=== PATIENT | male | born 1960 | race Hispanic/Latino ===

== ENCOUNTER 2019-04-28 20:31 | Emergency (ER) | payer OTHER ==
--- NOTE | 2019-04-28 21:52 | ER ---
Nurse's Notes [facility] Name: Luis Carlos Lujan Jr Age: 58 yrs Sex: Male : 1960 Arrival Date: 04/28/2019 Time: 20:34 Bed 18 Private MD: Jose Miguel Oropeza B Diagnosis: Cough;Acute upper respiratory infection, unspecified Presentation: 04/27 20:50 Chief complaint: Patient states: I am having cough, SOB for 1 week now. I called dr. jen oropeza PCP he ordered me to do chest xray, told him I feel dizzy and headache too . 20:50 Coronavirus screen: Patient reports a subjective fever or greater than 100.4F, or rr5 cough, or shortness of breath, or difficulty breathing. Patient denies travel on a cruise ship or to a country the [facility] currently lists as an affected area. Ebola Screen: Patient negative for fever greater than or equal to 101.5 degrees Fahrenheit, and additional compatible Ebola Virus Disease symptoms Patient denies exposure to infectious person. Patient denies travel to an Ebola-affected area in the 21 days before illness onset. Initial Sepsis Screen: Does the patient meet any 2 criteria? No. Patient's initial sepsis screen is negative. Does the patient have a suspected source of infection? Yes: Productive cough/pneumonia. Risk Assessment: Do you want to hurt yourself or someone else? Patient reports no desire to harm self or others. Onset of symptoms was April 23, 2019. 20:50 Method Of Arrival: Ambulatory rr5 20:50 Acuity: HONORIO 4 rr5 Triage Assessment: 21:00 Respiratory: Onset: The symptoms/episode began/occurred gradually, the patient reports wh symptoms have resolved. 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 - Social history:: Smoking status: Patient denies any tobacco usage or history of. Patient/guardian denies using alcohol, street drugs. Screenin:01 Abuse screen: Denies threats or abuse. Denies injuries from another. Nutritional rr5 screening: No deficits noted. Tuberculosis screening: No symptoms or risk factors identified. Fall Risk None identified. Total Awan Fall Scale indicates No Risk (0-24 pts). Assessment: 21:00 General: Appears in no apparent distress. Behavior is calm, cooperative, appropriate wh for age. Pain: Denies pain. Neuro: Level of Consciousness is awake, alert, obeys commands, Oriented to person, place, time, situation, Appropriate for age. Cardiovascular: Heart tones S1 S2 Rhythm is regular. Respiratory: Reports shortness of breath cough that is non-productive, dry, Airway is patent Respiratory effort is even, unlabored, Respiratory pattern is regular, symmetrical, Breath sounds are clear bilaterally. GI: Abdomen is flat, non-distended. : No signs and/or symptoms were reported regarding the genitourinary system. EENT: Throat is pink. Derm: Skin is intact, is healthy with good turgor, Skin is pink, warm \T\ dry. normal. Musculoskeletal: Circulation, motion, and sensation intact. 21:59 Reassessment: Patient appears in no apparent distress at this time. Patient is alert, rr5 oriented x 3, equal unlabored respirations, skin warm/dry/pink. discharge instruction given and explained without complaints made. Vital Signs: 20:50 BP 170 / 81; Pulse 83; Resp 22; Temp 98.6; Pulse Ox 99% ; Weight 112.49 kg; Height 5 rr5 ft. 5 in. (165.10 cm); Pain 8/10; 21:59 BP 126 / 75; Pulse 75; Resp 19; Temp 97.8; Pulse Ox 99% on R/A; rr5 20:50 Body Mass Index 41.27 (112.49 kg, 165.10 cm) rr5 ED Course: 20:34 Patient arrived in ED. es 20:35 Jose Miguel Oropeza MD is Private Physician. es 20:41 Kyung Verma is Primary Nurse. wh 20:42 [facility] Rabago [facility]C [facility]. snw 20:42 Chaz Gomez MD is Attending Physician. snw 20:50 Arm band placed on right wrist. rr5 20:50 Patient has correct armband on for positive identification. Bed in low position. Call rr5 light in reach. Pulse ox on. NIBP on. 20:57 Triage completed. rr5 21:31 Chest Single View XRAY In Process Unspecified. EDMS 21:51 Jose Miguel Oropeza MD is Referral Physician. snw 21:59 No provider procedures requiring assistance completed. Patient did not have IV access rr5 during this emergency room visit. Administered Medications: No medications were administered Outcome: 21:52 Discharge ordered by . snw 21:59 Discharged to home ambulatory. rr5 21:59 Discharge instructions given to patient, Instructed on discharge instructions, follow up and referral plans. medication usage, Demonstrated understanding of instructions, follow-up care, medications, Prescriptions given X 1. 22:00 Condition: stable rr5 22:00 Patient left the ED. rr5 Signatures: Dispatcher [employer] EDAR Cate Rabago, DEBT RECOVERY OFFICER-C DEBT RECOVERY OFFICER-Carmencita Jones Winsy wh Roque, Raymond, RN RN rr5
--- NOTE | 2019-04-28 21:52 | EDPHYS ---
Physician Documentation [facility] Name: Luis Carlos Lujan Jr Age: 58 yrs Sex: Male : 1960 Arrival Date: 04/28/2019 Time: 20:34 Bed 18 Private MD: Jose Miguel Oropeza B ED Physician Chaz Gomez HPI: 04/27 20:56 This 58 yrs old Male presents to ER via Unassigned with complaints of Cough, snw Shortness Of Breath, Dizziness, Headache. 20:56 The patient or guardian reports cough, flu symptoms, low-grade fever, myalgias, no snw appetite, headache, dizziness. Onset: The symptoms/episode began/occurred suddenly, 5 day(s) ago, and became persistent. Severity of symptoms: At their worst the symptoms were moderate. Associated signs and symptoms: Pertinent positives: cough, dizziness, headache. It is unknown whether or not the patient has had similar symptoms in the past. called Dr. Oropeza' office and Antione Harper and [employer] called out for Pt on Tuesday, Pt states he does not feel better. 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 - Social history:: Smoking status: Patient denies any tobacco usage or history of. Patient/guardian denies using alcohol, street drugs. ROS: 20:55 Constitutional: Negative for fever, chills, and weight loss, Eyes: Negative for injury, snw pain, redness, and discharge, ENT: Negative for injury, pain, and discharge, Neck: Negative for injury, pain, and swelling, Cardiovascular: Negative for chest pain, palpitations, and edema, Abdomen/GI: Negative for abdominal pain, nausea, vomiting, diarrhea, and constipation, Back: Negative for injury and pain, : Negative for injury, bleeding, discharge, and swelling, MS/Extremity: Negative for injury and deformity, Skin: Negative for injury, rash, and discoloration, Neuro: Negative for headache, weakness, numbness, tingling, and seizure, Psych: Negative for depression, anxiety, suicide ideation, homicidal ideation, and hallucinations. 20:55 Respiratory: Positive for cough, shortness of breath, at rest. Exam: 20:54 Constitutional: This is a well developed, well nourished patient who is awake, alert, snw and in no acute distress. Head/Face: Normocephalic, atraumatic. Eyes: Pupils equal round and reactive to light, extra-ocular motions intact. Lids and lashes normal. Conjunctiva and sclera are non-icteric and not injected. Cornea within normal limits. Periorbital areas with no swelling, redness, or edema. ENT: Nares patent. No nasal discharge, no septal abnormalities noted. Tympanic membranes are normal and external auditory canals are clear. Oropharynx with no redness, swelling, or masses, exudates, or evidence of obstruction, uvula midline. Mucous membranes moist. Neck: Trachea midline, no thyromegaly or masses palpated, and no cervical lymphadenopathy. Supple, full range of motion without nuchal rigidity, or vertebral point tenderness. No Meningismus. Chest/axilla: Normal chest wall appearance and motion. Nontender with no deformity. No lesions are appreciated. Cardiovascular: Regular rate and rhythm with a normal S1 and S2. No gallops, murmurs, or rubs. Normal PMI, no JVD. No pulse deficits. Abdomen/GI: Soft, non-tender, with normal bowel sounds. No distension or tympany. No guarding or rebound. No evidence of tenderness throughout. Back: No spinal tenderness. No costovertebral tenderness. Full range of motion. Skin: Warm, dry with normal turgor. Normal color with no rashes, no lesions, and no evidence of cellulitis. MS/ Extremity: Pulses equal, no cyanosis. Neurovascular intact. Full, normal range of motion. Neuro: Awake and alert, GCS 15, oriented to person, place, time, and situation. Cranial nerves II-XII grossly intact. Motor strength 5/5 in all extremities. Sensory grossly intact. Cerebellar exam normal. Normal gait. Psych: Awake, alert, with orientation to person, place and time. Behavior, mood, and affect are within normal limits. 20:54 Respiratory: the patient does not display signs of respiratory distress, Respirations: normal, Breath sounds: are clear throughout, dry cough. Vital Signs: 20:50 BP 170 / 81; Pulse 83; Resp 22; Temp 98.6; Pulse Ox 99% ; Weight 112.49 kg; Height 5 rr5 ft. 5 in. (165.10 cm); Pain 8/10; 21:59 BP 126 / 75; Pulse 75; Resp 19; Temp 97.8; Pulse Ox 99% on R/A; rr5 20:50 Body Mass Index 41.27 (112.49 kg, 165.10 cm) rr5 MDM: 20:42 Patient medically screened. snw 21:52 Data reviewed: vital signs, nurses notes. Data interpreted: Pulse oximetry: on room air snw is 99 %. Interpretation: normal. Counseling: I had a detailed discussion with the patient and/or guardian regarding: the historical points, exam findings, and any diagnostic results supporting the discharge/admit diagnosis, the presence of at least one elevated blood pressure reading (>120/80) during this emergency department visit, radiology results, the need for outpatient follow up, to return to the emergency department if symptoms worsen or persist or if there are any questions or concerns that arise at home. Special discussion: Based on the history and exam findings, there is no indication for further emergent testing or inpatient evaluation. I discussed with the patient/guardian the need to see the primary care provider for further evaluation of the symptoms. 04/27 20:48 Order name: Chest Single View XRAY snw Administered Medications: No medications were administered Disposition: 04/28 18:06 Co-signature as Attending Physician, Chaz Gomez MD I agree with the assessment and dudley plan of care. Disposition: 04/28/19 21:52 Discharged to Home. Impression: Cough, Acute upper respiratory infection, unspecified. - Condition is Stable. - Discharge Instructions: Viral Respiratory Infection, Cool Mist Vaporizer, Cough, Adult, [id number], Rehydration, Adult. - Prescriptions for Zyrtec 10 mg Oral Tablet - take 1 tablet by ORAL route once daily As needed; 20 tablet. - Work release form, Medication Reconciliation Form, Thank You Letter, Antibiotic Education, Prescription Opioid Use form. - Follow up: Jose Miguel Oropeza MD; When: 2 - 3 days; Reason: Recheck today's complaints, Continuance of care, Re-evaluation by your physician. Follow up: Emergency Department; When: As needed; Reason: Fever > 102 F, Trouble breathing, Worsening of condition. Signatures: Dispatcher [employer] EDChaz Swanson MD MD cha Therrien, Shelly, WORKERS COMPENSATION ATTORNEY-C WORKERS COMPENSATION ATTORNEY-Csnw Judson Thornton, RN RN rr5 Corrections: (The following items were deleted from the chart) 04/27 22:00 21:52 04/28/2019 21:52 Discharged to Home. Impression: Cough; Acute upper respiratory rr5 infection, unspecified. Condition is Stable. Forms are Medication Reconciliation Form, Thank You Letter, Antibiotic Education, Prescription Opioid Use. Follow up: Jose Miguel Oropeza; When: 2 - 3 days; Reason: Recheck today's complaints, Continuance of care, Re-evaluation by your physician. Follow up: Emergency Department; When: As needed; Reason: Fever > 102 F, Trouble breathing, Worsening of condition. snw
[2019-04-28 22:07] VITALS: O2SAT 99
[2019-04-28 22:09] VITALS: BP 126/75; TEMP 97.8
--- NOTE | 2019-04-29 09:32 | RAD REPORT ---
EXAM DESCRIPTION: RAD - Chest Single View - 04/28/2019 9:31 pm CLINICAL HISTORY: COUGH COMPARISON: Two view chest December 2014 TECHNIQUE: AP portable chest image was obtained 04/28/2019 9:31 pm . FINDINGS: Lung volumes are low. No peripheral mass or consolidation. Interstitial pattern is not sub stantially different. Minimal edema or infiltrate is potentially masked. Heart and vasculature are no rmal. No measurable pleural effusion and no pneumothorax. No acute bony abnormality seen. No acute ao rtic findings suspected. IMPRESSION: No acute cardiopulmonary process. No significant change from comparison.
== END 2019-04-28 22:00 | disposition home or self-care (01) ==
LOC: ER 20:31
DX: J06.9 Acute upper respiratory infection, unspecified (principal); R05 Cough
CPT/HCPCS: 71045; 99283

== ENCOUNTER 2020-02-08 13:09 | Emergency (ER) | payer OTHER ==
--- OUTSIDE RECORDS SUMMARY | 2020-02-08 13:11 | XMS REPORT | Clinical Summary ---
:1960 Author Organization [facility] Address [address] [place] [id number] Care Team Providers Name Role Phone Heladio Oropeza MD Primary Care Provider Allergies No Known Allergies Medications Not on file Active Problems Not on file Social History Tobacco Use Types Packs/Day Years Used Date Never Assessed Sex Assigned at Date Recorded Not on file Last Filed Vital Signs Not on file Plan of Treatment Not on file Results Not on fileafter 02/07/2019 Insurance Payer Benefit Plan / Subscriber ID Effective Dates Phone Addre ss Type Group [facility] HMO POS [id number] 2016-Present HMO/POS - [facility] SELECT CHOICE
--- OUTSIDE RECORDS SUMMARY | 2020-02-08 13:11 | XMS REPORT | Summary of Care ---
:1960 Author Organization [facility] Address [address] [place] [address] Care Team Providers Name Role Phone Pcp, Patient Does Not Have A Primary Care Provider +[id number] Reason for Visit Reason Comments LAB covid testing- no symptoms a t this time Encounter Details Date Type Department Care Team Description 12/24/2019 Laboratory Only [facility] Family López George PA-C [address] [place] [id number] Exposure to Medicine - [facility], Adc Fam Pob I SARS-associated [address] [facility] coronaviru s ([address]) [place] [address] Allergies No Known Allergiesdocumented as of this encounter (statuses as of 12/24/2019) Medications Medication Sig Dispensed Refills Start Date End Date Status cetirizine 10 mg tablet Take 10 mg by 0 Active mouth. nadoloL 40 mg tablet Take 40 mg by 0 Active mouth. omeprazole 40 mg 0 10/08/2019 Ac tive capsule XIFAXAN 550 mg tablet 0 09/21/2019 Active eplerenone 50 mg tablet 0 08/23/2019 Active documented as of this encounter (statuses as of 12/24/2019) Active Problems Problem Noted Date Cirrhosis 04/28/2019 Shortness of breath 04/28/2019 Overview: Given albuterol by PCP Dr. Braxton Oropeza in [place]. Gave it on Tuesday04/24/2019. Was phone encounter Last Assessment & Plan: Now getting shortness of breath, on allergie meds in the past. No rhinorhea. No fever, 99.1 Has been self isolating since Tuesday. Dizziness when stand up, has hx of verti go. Room not spinning, getting light headed, everytime he stands up. Needs to be seen in person in urgent car e center. Will contact the urgent care team. 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 documented as of this encounter Last Filed Vital Signs Not on filedocumented in this encounter Nursing Notes Consuelo Vargas MA - 12/24/2019 5:20 PM CSTAbi Lujan is a 59 year old male here for COVID Screening with a Nasopharyngeal Swab All droplet and contact precautions taken with appropriate PPE worn while interacting with patient. ? Goggles ? N95 Mask ? Gloves ? Gown Patient educated on plan of care for visit, swabbing technique, risks and benefits of test and length of time to receive results. Verbal consent obtained to perform test. CDC Fact Sheet for Patients nCoV Diagnostic Panel dated 04/22/2019 and Factsheet What to Do if Sick with COVID 19 04/02/19 provided. Patient swabbed per appropriate nasopharyngeal technique, and patient tolerated well. Patient was discharged from the testing clinic in stable condition. Consuelo Waters MA 12/24/2019 5:40 PM Bilate nares swabbed during COVID19 nasopharyngeal swab. 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 Plan of Treatment Name Type Priority Associated Diagnoses Order S chedule COVID-19 (MOLECULAR LAB Routine Exposure to Expected : 12/24/2019, TESTING SARS-associated Expires: 021 NUCLEIC ACID coronavirus AMPLIFICATION) Health Maintenance Due Date Last Done Comments HEPATITIS C (HCV) SCREEN 1960 PNEUMOCOCCAL 0-64 YEARS COMBINED SERIES (1 of 1 - 1964 PPSV23) Depression Screening 1970 DTaP,Tdap,and Td Vaccines (1 - Tdap) 1977 COLON CANCER SCREENING ANNUAL FIT/FOBT 2008 COLON CANCER SCREENING FIT DNA EVERY 3 YEARS 2008 COLON CANCER SCREENING SIGMOIDOSCOPY EVERY 5 YEARS 2008 COLONOSCOPY 2008 Colorectal Cancer Screening 2008 Zoster Recombinant Vaccine (SHINGRIX) (1 of 2) 2008 INFLUENZA VACCINE (#1) 2019 documented as of this encounter Results Not on filedocumented in this encounter Visit Diagnoses Diagnosis Exposure to SARS-associated coronavirus - Primary documented in this encounter Additional Health Concerns Infection Onset Date Last Indicated Resolved Time COVID-19 Rule Out 12/24/2019 12/24/2019 documented as of this encounter Insurance Payer Benefit Plan / Subscriber ID Effective Dates Phone Addre ss Type Group [facility] [id number] [facility] P[facility] t S documented as of this encounter
--- OUTSIDE RECORDS SUMMARY | 2020-02-08 13:11 | XMS REPORT | Clinical Summary ---
:1960 Author Organization [facility] Address [address] [place] [address] Care Team Providers Name Role Phone Jose Miguel Oropeza MD Primary Care Provider Allergies No Known Active Allergies Medications Medication Sig Dispensed Refills Start Date End Date Status nadolol (CORGARD) 40 Take 40 mg by 0 Active MG tablet mouth daily. cetirizine (ZyrTEC) 10 Take 10 mg by 0 Active MG tablet mouth daily as needed for allergies. Active Problems Problem Noted Date Lower GI bleed 10/09/2018 Disorder of liver 10/09/2018 Acute calculous cholecystitis 08/03/2016 NAFL (nonalcoholic fatty liver) 07/15/2016 Cholelithiasis without obstruction 07/15/2016 Abdominal pain, right upper quadrant 07/15/2016 Non-alcoholic cirrhosis 07/15/2016 Surgical History Surgery Date Site/Laterality Comments RECTAL SURGERY 02/07/2006 - growth removed 02/06/2007 CHOLECYSTECTOMY, 08/03/2016 Abdomen/N/A Procedure: LAPA ROSCOPIC LAPAROSCOPIC CHOLECYSTECTOMY; Surgeon: Nicolas Hernandez MD; Loc ation: [facility]; rvice: General; Latera lity: N/A; Medical History Medical History Date Comments Valvular disease murmur; per pt, has leaky heart valve X 2 Shortness of breath due to wt per pt Apnea uses CPAP Diarrhea Gall stone Rectal bleeding per pt Kidney stone Tingling Numbness feet due to sciatic nerve, herniated disc Cirrhosis (HCC) Stomach ulcer per referral records Fatty liver disease, nonalcoholic Portal hypertension (HCC) Social History Tobacco Use Types Packs/Day Years Used Date Never Smoker Alcohol Use Drinks/Week oz/Week Comments No Sex Assigned at Date Recorded Not on file Last Filed Vital Signs Not on file Plan of Treatment Health Maintenance Due Date Last Done Comments COVID-19 VACCINE (#1) 1974 COLONOSCOPY SCREENING 2008 SHINGLES VACCINES (#1) 2008 INFLUENZA VACCINE 09/08/2019 Results Not on fileafter 02/07/2019 Advance Directives For more information, please contact: [phone] Type Date Recorded Patient Food Checker Explanati on Advance Directives, Living Will and Medical Power of Fighting Vehicle Infantryman Advance Directives, 10/17/2018 8:25 AM POA 0 10-10-2018 Living Will and Medical Power of Fighting Vehicle Infantryman
--- OUTSIDE RECORDS SUMMARY | 2020-02-08 13:11 | XMS REPORT | Continuity of Care Document ---
:1960 Author Organization [employer] [facility] Care Team Providers Name Role Phone [employer] [facility] Unavailable Un available Problems Problem Status Onset Classification Date Comments Sourc e Date Reported Diabetes mellitus Active Problem 06/02/2018 M ischer (disorder) Neuro Disorder of liver Active Problem 06/02/2018 M ischer (disorder) Neuro Heart murmur Resolved Problem 06/02/2018 Mische r (finding) Neuro Hyperlipidemia Active Problem 06/02/2018 Misc her (disorder) Neuro Morbid obesity Active Problem 06/02/2018 Misc her (disorder) Neuro Prolapsed lumbar Active Problem 06/02/2018 Mi oj intervertebral Neuro disc (disorder) Ulnar neuropathy Active Problem 06/02/2018 Mi oj (disorder) Neuro Medications No Data Provided for This Section Allergies, Adverse Reactions, Alerts No Known Medication Allergies Immunizations No Data Provided for This Section Results No Data Provided for This Section Pathology Reports No Data Provided for This Section Diagnostic Reports No Data Provided for This Section Consultation Notes No Data Provided for This Section Discharge Summaries No Data Provided for This Section History and Physicals No Data Provided for This Section Vital Signs No Data Provided for This Section Encounters Location Location Encounter Encounter Reason Attending ADM MA Stat Source Details Type Number For Provider Date Date Visit Outpatient [id number] KIERA 03/31 [facility] Outpatient [id number] KIERA 04/26 [facility] Outside [id number] 05/30 06/01 [facility] Neurology Medical /2018 [facility] [place] Records Procedures Procedure Code Date Perfomer Comments Source Cholecystectomy [id number] [facility] [place] [facility] Assessment and Plan No Data Provided for This Section Plan of Care No Data Provided for This Section Social History Social History Date Source Social History TypeResponse 03/31/2018 [facility] o Employment/School 1 Smoking Status Unknown if ever smoked; 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 Usha Oropeza-PCP Family History No Data Provided for This Section Advance Directives No Data Provided for This Section Functional Status No Data Provided for This Section
[2020-02-08] MEDS ORDERED: FENTANYL CITR 100 MCG/2 ML ONE (14:24)
--- NOTE | 2020-02-08 14:32 | RAD REPORT ---
EXAM DESCRIPTION: RAD - Chest Single View - 02/08/2020 2:20 pm CLINICAL HISTORY: CHEST PAIN COMPARISON: Single-view chest April 2019 TECHNIQUE: AP portable chest image was obtained 02/08/2020 2:20 pm . FINDINGS: No focal lung parenchymal process. Interstitial pattern matches comparison. Heart and vasc ulature are normal. No measurable pleural effusion and no pneumothorax. No acute bony abnormality see n. No acute aortic findings suspected. IMPRESSION: No acute cardiopulmonary process. No significant change from comparison study.
[2020-02-08 14:50] LABS: Absolute Lymphocytes (CBC) 0.7 K/uL (0.7-4.9); Basophils % 1.1 % (0-1.3); Hematocrit 40.7 % (39.6-49.0); MPV 11.9 fL (7.6-11.3); Protime INR 1.28; RBC Red Blood Cell Count 4.57 M/uL (4.33-5.43)
[2020-02-08 14:56] LABS: ALT/SGPT 41 U/L (12-78); AST/SGOT 46 U/L (15-37); Albumin 3.5 g/dL (3.4-5.0); Alkaline Phosphatase 70 U/L (45-117); BUN Blood Urea Nitrogen 17 mg/dL (7-18); Bicarbonate 28 mmol/L (21-32); Bilirubin Direct 0.4 mg/dL (0-0.2); Bilirubin Total 1.9 mg/dL (0.2-1.0); Glucose Level 94 mg/dL (74-106); Magnesium 2.2 mg/dL (1.8-2.4); NT PRO-BNP 39 pg/mL (<125); Potassium 4.7 mmol/L (3.5-5.1); Protein, Total 7.1 g/dL (6.4-8.2); Sodium Level 141 mmol/L (136-145); Troponin (Emerg Dept Use Only) < 0.02 ng/mL (0.0-0.045)
--- NOTE | 2020-02-08 15:20 | EDPHYS ---
Physician Documentation [facility] Name: Luis Carlos Lujan Jr Age: 59 yrs Sex: Male : 1960 Arrival Date: 02/08/2020 Time: 13:12 Bed 17 Private MD: ED Physician Davidson Angela HPI: 02/07 14:03 This 59 yrs old Male presents to ER via Ambulatory with complaints of Eye pm1 Problem, Chest pain, Shoulder Pain. 14:03 The patient or guardian reports chest pain that is located primarily in the mid-sternal pm1 area. Onset: 1 week(s) ago. The pain does not radiate. Associated signs and symptoms: Pertinent positives: headache, Pertinent negatives: abdominal pain, nausea, shortness of breath, vomiting. The chest pain is described as aching. Modifying factors: the symptoms are aggravated by left arm movement. Patient with left shoulder and neck pain for 1.5 weeks. Patient sleeps in recliner due to chronic low back pain. Patient reports yellowing of bilateral eyes yesterday that has improved today. Redness present to left eye this AM. 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 - Social history:: Smoking status: Patient denies any tobacco usage or history of. ROS: 14:03 Constitutional: Negative for fever, chills, and weight loss. pm1 14:03 ENT: Negative for injury, pain, and discharge. 14:03 Respiratory: Negative for shortness of breath, cough, wheezing, and pleuritic chest pain, Abdomen/GI: Negative for abdominal pain, nausea, vomiting, diarrhea, and constipation, Back: Negative for injury and pain, Skin: Negative for injury, rash, and discoloration. 14:03 Eyes: Positive for redness, Negative for discharge, pain, visual disturbance. 14:03 Neck: Positive for of the left trapezius, Pain, Negative for bony tenderness. 14:03 Cardiovascular: Positive for chest pain, Negative for edema, palpitations. 14:03 MS/extremity: Positive for pain, of the posterior aspect of left shoulder, Pain with movement. 14:03 Neuro: Positive for headache, Negative for altered mental status, dizziness. Exam: 14:00 Constitutional: This is a well developed, well nourished patient who is awake, alert, pm1 and in no acute distress. Head/Face: Normocephalic, atraumatic. 14:00 Chest/axilla: Normal chest wall appearance and motion. Nontender with no deformity. No lesions are appreciated. 14:00 Back: No spinal tenderness. No costovertebral tenderness. Full range of motion. Skin: Warm, dry with normal turgor. Normal color with no rashes, no lesions, and no evidence of cellulitis. MS/ Extremity: Pulses equal, no cyanosis. Neurovascular intact. Full, normal range of motion. 14:00 Eyes: Periorbital structures: appear normal, Pupils: no acute changes, Extraocular movements: no acute changes, Conjunctiva: subconjunctival hemorrhage(s), seen in the right eye, at 6 o'clock. 14:00 Neck: External neck: tenderness, of the left trapezius, muscle spasm. 14:00 Cardiovascular: Exam negative for acute changes, Rate: normal, Rhythm: regular, Pulses: no pulse deficits are appreciated. 14:00 Respiratory: Exam negative for acute changes, respiratory distress, shortness of breath. 14:00 Abdomen/GI: Exam negative for acute changes, Inspection: abdomen appears normal, Palpation: abdomen is soft and non-tender, in all quadrants. 14:00 Neuro: Exam negative for acute changes, Orientation: is normal, Mentation: is normal, Motor: is normal, moves all fours. Vital Signs: 13:38 BP 126 / 73; Pulse 58; Resp 16 S; Temp 97.9(TE); Pulse Ox 97% on R/A; Weight 104.78 kg ca1 (R); Height 5 ft. 5 in. (165.10 cm) (R); Pain 8/10; 13:55 BP 119 / 68; Pulse 58; Resp 16; Pulse Ox 97% on R/A; mh5 15:45 BP 108 / 62; Pulse 53; Resp 17 S; Pulse Ox 98% on R/A; jd3 13:38 Body Mass Index 38.44 (104.78 kg, 165.10 cm) ca1 MDM: 14:02 Patient medically screened. pm1 15:18 Data reviewed: vital signs. Data interpreted: Pulse oximetry: on room air is 97 %. pm1 Interpretation: normal. 15:18 Counseling: I had a detailed discussion with the patient and/or guardian regarding: the pm1 historical points, exam findings, and any diagnostic results supporting the discharge/admit diagnosis, lab results, radiology results, the need for outpatient follow up, to return to the emergency department if symptoms worsen or persist or if there are any questions or concerns that arise at home. 15:26 ED course: Patient's left trapezius muscle strain improved with deep tissue massage. pm1 02/07 14:03 Order name: Basic Metabolic Panel; Complete Time: 15:00 pm1 02/07 14:03 Order name: CBC with Diff pm02/07 14:03 Order name: LFT's; Complete Time: 15:00 pm02/07 14:03 Order name: Magnesium; Complete Time: 15:00 pm1 02/07 14:03 Order name: NT PRO-BNP; Complete Time: 15:00 pm1 02/07 14:03 Order name: PT-INR; Complete Time: 15:01 pm02/07 14:03 Order name: Troponin (emerg Dept Use Only); Complete Time: 15:00 pm02/07 14:03 Order name: XRAY Chest (1 view); Complete Time: 14:41 pm02/07 14:03 Order name: EKG; Complete Time: 14:03 pm02/07 14:03 Order name: Cardiac monitoring; Complete Time: 14:11 pm02/07 14:03 Order name: EKG - Nurse/Tech; Complete Time: 14:11 pm02/07 14:03 Order name: IV Saline Lock; Complete Time: 14:30 pm02/07 14:03 Order name: Labs collected and sent; Complete Time: 14:30 pm1 02/07 14:03 Order name: O2 Per Protocol; Complete Time: 14:06 pm02/07 14:03 Order name: O2 Sat Monitoring; Complete Time: 14:05 pm1 Administered Medications: 14:30 Drug: fentaNYL (PF) 25 mcg Route: IVP; Site: right antecubital; jd3 15:30 Follow up: Response: No adverse reaction; RASS: Alert and Calm (0) jd3 Disposition: 16:20 Co-signature as Attending Physician, Davidson Angela MD I agree with the assessment and tw4 plan of care. Disposition: 02/08/20 15:20 Discharged to Home. Impression: Chest pain, unspecified, Conjunctival hemorrhage, right eye, Strain of muscle, fascia and tendon at neck level - left trapezius. - Condition is Stable. - Discharge Instructions: Nonspecific Chest Pain. - Prescriptions for Cyclobenzaprine 10 mg Oral Tablet - take 1 tablet by ORAL route every 8 hours As needed; 30 tablet. - Medication Reconciliation Form, Thank You Letter, Antibiotic Education, Prescription Opioid Use form. - Follow up: Emergency Department; When: As needed; Reason: Worsening of condition. Follow up: Private Physician; When: 2 - 3 days; Reason: Recheck today's complaints, Continuance of care, Re-evaluation by your physician. - Problem is new. - Symptoms have improved. Signatures: Dispatcher [employer] EDMS Jigar Michael NP ACADEMIC TUTOR pm1 Marin Bianchi RN RN jd3 Wadley, Terrence, MD MD tw4 Cristina Barros RN RN ca1 Corrections: (The following items were deleted from the chart) 15:30 15:20 02/08/2020 15:20 Discharged to Home. Impression: Chest pain, unspecified. pm1 Condition is Stable. Forms are Medication Reconciliation Form, Thank You Letter, Antibiotic Education, Prescription Opioid Use. Follow up: Emergency Department; When: As needed; Reason: Worsening of condition. Follow up: Private Physician; When: 2 - 3 days; Reason: Recheck today's complaints, Continuance of care, Re-evaluation by your physician. Problem is new. Symptoms have improved. pm1 15:45 15:30 02/08/2020 15:20 Discharged to Home. Impression: Chest pain, unspecified; jd3 Conjunctival hemorrhage, right eye; Strain of muscle, fascia and tendon at neck level - left trapezius. Condition is Stable. Discharge Instructions: Nonspecific Chest Pain. Prescriptions for Cyclobenzaprine 10 mg Oral Tablet - take 1 tablet by ORAL route every 8 hours As needed; 30 tablet. and Forms are Medication Reconciliation Form, Thank You Letter, Antibiotic Education, Prescription Opioid Use. Follow up: Emergency Department; When: As needed; Reason: Worsening of condition. Follow up: Private Physician; When: 2 - 3 days; Reason: Recheck today's complaints, Continuance of care, Re-evaluation by your physician. Problem is new. Symptoms have improved. pm1
--- NOTE | 2020-02-08 15:20 | ER ---
Nurse's Notes [facility] Name: Luis Carlos Lujan Jr Age: 59 yrs Sex: Male : 1960 Arrival Date: 02/08/2020 Time: 13:12 Bed 17 Private MD: Diagnosis: Chest pain, unspecified;Conjunctival hemorrhage, right eye;Strain of muscle, fascia and tendon at neck level-left trapezius Presentation: 02/07 13:38 Chief complaint: Patient states: L shoulder and L side of neck pain x 1.5 weeks. I have ca1 cirrhosis of the liver, told my liver doctor my eyes got yellow yesterday, but this morning, my eyes turn red on both, worse on the R. I also have a little chest discomfort since last week. Coronavirus screen: Client denies travel out of the [place] in the last 14 days. At this time, the client does not indicate any symptoms associated with coronavirus-19. Ebola Screen: Patient negative for fever greater than or equal to 101.5 degrees Fahrenheit, and additional compatible Ebola Virus Disease symptoms Patient denies exposure to infectious person. Patient denies travel to an Ebola-affected area in the 21 days before illness onset. No symptoms or risks identified at this time. Initial Sepsis Screen: Does the patient meet any 2 criteria? No. Patient's initial sepsis screen is negative. Does the patient have a suspected source of infection? No. Patient's initial sepsis screen is negative. Risk Assessment: Do you want to hurt yourself or someone else? Patient reports no desire to harm self or others. Onset of symptoms was February 08, 2020. 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 - Social history:: Smoking status: Patient denies any tobacco usage or history of. Screenin:32 Abuse screen: Denies threats or abuse. Nutritional screening: No deficits noted. jd3 Tuberculosis screening: No symptoms or risk factors identified. Fall Risk IV access (20 points). Ambulatory Aid- None/Bed Rest/Nurse Assist (0 pts). Gait- Normal/Bed Rest/Wheelchair (0 pts) Mental Status- Oriented to own ability (0 pts). Total Awan Fall Scale indicates No Risk (0-24 pts). Assessment: 14:31 General: Appears in no apparent distress. uncomfortable, Behavior is calm, cooperative, jd3 appropriate for age. Pain: Complains of pain in chest Quality of pain is described as aching, pressure. Neuro: Level of Consciousness is awake, alert, obeys commands, Oriented to person, place, time, situation. Cardiovascular: Capillary refill < 3 seconds Patient's skin is warm and dry. Rhythm is irregular. Respiratory: Airway is patent Respiratory effort is even, unlabored, Respiratory pattern is regular, symmetrical, Denies cough, shortness of breath. GI: No signs and/or symptoms were reported involving the gastrointestinal system. : No signs and/or symptoms were reported regarding the genitourinary system. EENT: No signs and/or symptoms were reported regarding the EENT system. Derm: Skin is intact, Skin is dry, Skin is jaundiced, Skin temperature is warm. Musculoskeletal: Circulation, motion, and sensation intact. Range of motion: intact in all extremities. 15:44 Reassessment: Patient appears in no apparent distress at this time. Patient and/or jd3 family updated on plan of care and expected duration. Pain level reassessed. Patient is alert, oriented x 3, equal unlabored respirations, skin warm/dry/pink. Patient states feeling better. Vital Signs: 13:38 BP 126 / 73; Pulse 58; Resp 16 S; Temp 97.9(TE); Pulse Ox 97% on R/A; Weight 104.78 kg ca1 (R); Height 5 ft. 5 in. (165.10 cm) (R); Pain 8/10; 13:55 BP 119 / 68; Pulse 58; Resp 16; Pulse Ox 97% on R/A; mh5 15:45 BP 108 / 62; Pulse 53; Resp 17 S; Pulse Ox 98% on R/A; jd3 13:38 Body Mass Index 38.44 (104.78 kg, 165.10 cm) ca1 ED Course: 13:12 Patient arrived in ED. rg4 13:42 Triage completed. ca1 13:43 Arm band placed on right wrist. ca1 13:49 Jigar Michael NP is PHCP. pm1 13:49 Davidson Angela MD is Attending Physician. pm1 13:57 Patient has correct armband on for positive identification. Bed in low position. Call mh5 light in reach. Side rails up X 1. Pulse ox on. NIBP on. 14:04 Marin Bainchi, RN is Primary Nurse. jd3 14:16 campus monitor on. jp3 14:16 EKG done, by ED staff, reviewed by Jigar Michael NP. Patient maintains SpO2 jp3 saturation greater than 95% on room air. 14:20 XRAY Chest (1 view) In Process Unspecified. EDMS 15:44 No provider procedures requiring assistance completed. IV discontinued, intact, jd3 bleeding controlled, No redness/swelling at site. Pressure dressing applied. Administered Medications: 14:30 Drug: fentaNYL (PF) 25 mcg Route: IVP; Site: right antecubital; jd3 15:30 Follow up: Response: No adverse reaction; RASS: Alert and Calm (0) jd3 Outcome: 15:20 Discharge ordered by MD. pm1 15:45 Discharged to home ambulatory. jd3 15:45 Condition: stable 15:45 Discharge instructions given to patient, Instructed on discharge instructions, follow up and referral plans. medication usage, Demonstrated understanding of instructions, follow-up care, medications, Prescriptions given X 1. 15:45 Patient left the ED. jd3 Signatures: Dispatcher [employer] EDID Jigar Michael NP TURBO GENERATOR OILER pm1 Deneen Morton 4 Robina Felton [facility] Marin Bianchi RN RN jd3 Param Leong jp3 Cristina Barros RN RN ca1
[2020-02-08 16:16] VITALS: BP 108/62; O2SAT 98
[2020-02-08 20:50] LABS: Blood Morphology Comment NOT SEEN (NOT SEEN); Platelet Estimate DECR; White Blood Cell Scan OK (OK)
--- NOTE | 2020-02-09 14:07 | EKG ---
Test Date: 2020-02-08 Test Time: 14:11:30 [employer] And Greaser: JAIME MEASUREMENT RESULTS: Intervals: Rate: 51 SC: 192 QRSD: 84 QT: 444 QTc: 409 Reform: P: 54 SC: 192 QRS: 26 T: 44 INTERPRETIVE STATEMENTS: Sinus bradycardia Otherwise normal ECG Compared to ECG 05/11/2010 06:52:13 Sinus rhythm no longer present Electronically Signed On 02-09-20 14:04:49 AGRICULTURAL EQUIPMENT SALESPERSON by Mauricio Guidry
== END 2020-02-08 15:45 | disposition home or self-care (01) ==
LOC: ER 13:09
DX: S16.1XXA Strain of muscle, fascia and tendon at neck level, initial encounter (principal); H11.31 Conjunctival hemorrhage, right eye
CPT/HCPCS: 93005; 85025; 80048; 36415; 83735; 85610; 80076; 84484; 83880; 71045; 96374; 99285; J3010

== ENCOUNTER 2020-04-02 09:06 | Emergency (ER) | payer OTHER ==
[2020-04-02 11:12] LABS: Absolute Lymphocytes (CBC) 0.6 K/uL (0.7-4.9); MPV 9.8 fL (7.6-11.3)
[2020-04-02 11:15] LABS: Protime INR 1.12
[2020-04-02 11:19] LABS: Basophils % 0.8 % (0-1.3); Lymphocytes % 30.2 % (15.3-44.8)
[2020-04-02 11:29] LABS: ALT/SGPT 74 U/L (12-78); AST/SGOT 97 U/L (15-37); Albumin 3.3 g/dL (3.4-5.0); Alkaline Phosphatase 138 U/L (45-117); BUN Blood Urea Nitrogen 11 mg/dL (7-18); Bicarbonate 26 mmol/L (21-32); Bilirubin Direct 0.3 mg/dL (0-0.2); Bilirubin Total 1.1 mg/dL (0.2-1.0); C-Reactive Protein 3.41 mg/L (<3.00); Ferritin 33.5 ng/mL (26-388); Glucose Level 90 mg/dL (74-106); Lipase 323 U/L (73-393); Potassium 4.6 mmol/L (3.5-5.1); Protein, Total 7.1 g/dL (6.4-8.2); Sodium Level 141 mmol/L (136-145); Troponin (Emerg Dept Use Only) < 0.02 ng/mL (0.0-0.045)
--- NOTE | 2020-04-02 11:36 | RAD REPORT ---
EXAM DESCRIPTION: Solomon Single View04/02/2020 11:01 am CLINICAL HISTORY: Shortness of breath COMPARISON: February 2020 FINDINGS: The lungs appear clear of acute infiltrate. The heart is normal size IMPRESSION: No acute abnormalities displayed
--- NOTE | 2020-04-02 12:04 | RAD REPORT ---
EXAM DESCRIPTION: CT - Chest For Pe Angio - 04/02/2020 11:50 am CLINICAL HISTORY: Shortness of breath COMPARISON: None. TECHNIQUE: Dynamically enhanced axial 3 mm thick images of the chest were obtained during administra tion of <100> mL Isovue 370 IV contrast. Coronal and oblique reconstruction images were generated and reviewed. Exam utilizes a protocol for optimal evaluation of pulmonary arterial tree. Maximum intensity projections 3D imaging was utilized All CT scans are performed using dose optimization technique as appropriate and may include automated exposure control or mA/KV adjustment according to patient size. FINDINGS: A pulmonary embolus is not seen. A thoracic aortic aneurysm is not noted. A pleural effusion is not seen. A pericardial effusion is not seen. Lungs are clear IMPRESSION: Negative for a pulmonary embolism.
[2020-04-02 12:39] LABS: White Blood Cell Scan OK (OK)
[2020-04-02 12:40] LABS: Blood Morphology Comment NOT SEEN (NOT SEEN); Platelet Estimate DECR; Platelets, Giant P
--- NOTE | 2020-04-02 12:40 | ER ---
Nurse's Notes [facility] Name: Luis Carlos Lujan Jr Age: 59 yrs Sex: Male : 1960 Arrival Date: 04/02/2020 Time: 09:07 Bed 8 Private MD: Jose Miguel Oropeza B Diagnosis: Coronavirus infection, unspecified Presentation: 04/02 09:20 Chief complaint: Patient states: "I got tested for COVID yesterday and it came back aa5 today as positive, I feel short of breath, I have a headache, and I have diarrhea, today I checked my oxygen and it was 92 to 93% and Dr. Oropeza told me to come here". 09:20 Acuity: HONORIO 3 aa5 09:20 Coronavirus screen: Client presents with at least one sign or symptom that may indicate aa5 coronavirus-19. Standard/surgical mask placed on the client. Provider contacted for isolation considerations. Client reports previous positive COVID test result. Ebola Screen: Patient negative for fever greater than or equal to 101.5 degrees Fahrenheit, and additional compatible Ebola Virus Disease symptoms. Initial Sepsis Screen: Does the patient meet any 2 criteria? No. Patient's initial sepsis screen is negative. Does the patient have a suspected source of infection? No. Patient's initial sepsis screen is negative. Risk Assessment: Do you want to hurt yourself or someone else? Patient reports no desire to harm self or others. Onset of symptoms was March 2020. 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 - Social history:: Smoking status: Patient denies any tobacco usage or history of. Screenin:40 Abuse screen: Denies threats or abuse. Denies injuries from another. Nutritional sv screening: No deficits noted. Tuberculosis screening: No symptoms or risk factors identified. Fall Risk None identified. Assessment: 10:40 General: Appears in no apparent distress. comfortable, well groomed, well developed, sv Behavior is calm, cooperative, appropriate for age. Pain: Denies pain. Neuro: Level of Consciousness is awake, alert, obeys commands, Oriented to person, place, time, situation, Moves all extremities. Full function Gait is steady, Speech is normal. Cardiovascular: Patient's skin is warm and dry. Pulses are 3+ in right brachial artery and left brachial artery Rhythm is regular. Respiratory: Reports shortness of breath on exertion Airway is patent Respiratory effort is even, unlabored, Respiratory pattern is regular, symmetrical, Onset: The symptoms/episode began/occurred yesterday, the patient has mild shortness of breath. GI: Reports diarrhea. Derm: Skin is intact, Skin is pink, warm \\T\\ dry. Musculoskeletal: Range of motion: intact in all extremities. 12:56 Respiratory: Breath sounds are clear. iw Vital Signs: 09:20 BP 98 / 58; Pulse 62; Resp 18 S; Temp 98.4(O); Pulse Ox 99% on R/A; Weight 102.97 kg aa5 (R); Height 5 ft. 5 in. (165.10 cm) (R); 09:20 Body Mass Index 37.77 (102.97 kg, 165.10 cm) aa5 ED Course: 09:07 Patient arrived in ED. ag5 09:07 Jose Miguel Oropeza MD is Private Physician. ag5 09:20 Arm band placed on. aa5 09:27 Triage completed. aa5 09:33 Clare Hart FNP-C [facility]. kb 09:33 Mamadou Joyce MD is Attending Physician. kb 10:34 Jen Benson, RN is Primary Nurse. iw 10:40 Primary Nurse role handed off by Jen Benson, RN sv 10:40 Ning Gutierrez, ZHAO is Primary Nurse. sv 10:40 Patient has correct armband on for positive identification. Bed in low position. Call sv light in reach. Pulse ox on. NIBP on. Door closed. Head of bed elevated. 10:40 First set of blood cultures drawn by me. sv 10:48 EKG done, by ED staff, reviewed by Clare MADDEN. em1 10:55 Second set of blood cultures drawn by me. Inserted saline lock: 20 gauge in right sv antecubital area, using aseptic technique. Blood collected. Flushed right antecubital with 5 ml normal saline. 11:01 CXR XRAY In Process Unspecified. EDMS 11:18 Awaiting lab results, Awaiting radiology results. sv 11:24 Blood Culture Adult (2) Sent. sv 11:49 CT Chest For PE Angio In Process Unspecified. EDMS 12:39 Jose Miguel Oropeza MD is Referral Physician. kb 12:56 No provider procedures requiring assistance completed. IV discontinued, intact, iw bleeding controlled, No redness/swelling at site. Pressure dressing applied. Administered Medications: No medications were administered Outcome: 12:39 Discharge ordered by . kb 12:56 Discharged to home ambulatory. iw 12:56 Condition: good 12:56 Discharge instructions given to patient, Instructed on discharge instructions, follow up and referral plans. medication usage, Demonstrated understanding of instructions, follow-up care, medications, Prescriptions given X 1. 12:56 Patient left the ED. iw Signatures: Dispatcher [employer] EDMS Clare Hart, MARYANNE GIRARDP-Ning Devlin, RN RN Jen Ramos, RN RN Philip Tillman em1 Buffy Stark RN RN aa5 Galina, Gonzalo 5
--- NOTE | 2020-04-02 12:40 | EDPHYS ---
Physician Documentation [facility] Name: Luis Carlos Lujan Jr Age: 59 yrs Sex: Male : 1960 Arrival Date: 04/02/2020 Time: 09:07 Bed 8 Private MD: Jose Miguel Oropeza B ED Physician Mamadou Joyce HPI: 04/02 13:58 This 59 yrs old Male presents to ER via Ambulatory with complaints of kb Shortness Of Breath, COVID+. 13:58 The patient has not experienced similar symptoms in the past. The patient has not kb recently seen a physician. 13:59 The patient or guardian reports cough, that is intermittent, described as moderate, kb with no sputum, difficulty breathing, flu symptoms, myalgias, no appetite. Onset: The symptoms/episode began/occurred 2 day(s) ago. Severity of symptoms: At their worst the symptoms were moderate, in the emergency department the symptoms are unchanged. Modifying factors: The symptoms are alleviated by nothing, the symptoms are aggravated by nothing. Associated signs and symptoms: Pertinent positives: diarrhea, nausea, rhinorrhea, vomiting. 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 - Social history:: Smoking status: Patient denies any tobacco usage or history of. ROS: 13:55 Cardiovascular: Negative for chest pain, palpitations, and edema, MS/Extremity: kb Negative for injury and deformity, Skin: Negative for injury, rash, and discoloration. 13:55 Constitutional: Positive for body aches, chills, fatigue, malaise. 13:55 Respiratory: Positive for cough, shortness of breath. 13:55 Abdomen/GI: Positive for nausea, diarrhea. 13:55 Neuro: Positive for headache. Exam: 13:56 Constitutional: This is a well developed, well nourished patient who is awake, alert, kb and in no acute distress. Head/Face: Normocephalic, atraumatic. Chest/axilla: Normal chest wall appearance and motion. Nontender with no deformity. No lesions are appreciated. Cardiovascular: Regular rate and rhythm with a normal S1 and S2. No gallops, murmurs, or rubs. Normal PMI, no JVD. No pulse deficits. Respiratory: Lungs have equal breath sounds bilaterally, clear to auscultation and percussion. No rales, rhonchi or wheezes noted. No increased work of breathing, no retractions or nasal flaring. Abdomen/GI: Soft, non-tender, with normal bowel sounds. No distension or tympany. No guarding or rebound. No evidence of tenderness throughout. Skin: Warm, dry with normal turgor. Normal color with no rashes, no lesions, and no evidence of cellulitis. MS/ Extremity: Pulses equal, no cyanosis. Neurovascular intact. Full, normal range of motion. 13:56 Neuro: Orientation: is normal, to person, place, time \T\ situation. Mentation: is normal, able to follow commands, Motor: is normal, moves all fours, Sensation: is normal, Gait: is steady, without difficulty. Vital Signs: 09:20 BP 98 / 58; Pulse 62; Resp 18 S; Temp 98.4(O); Pulse Ox 99% on R/A; Weight 102.97 kg aa5 (R); Height 5 ft. 5 in. (165.10 cm) (R); 09:20 Body Mass Index 37.77 (102.97 kg, 165.10 cm) aa5 MDM: 10:30 Patient medically screened. kb 13:53 Data reviewed: vital signs, nurses notes. Data interpreted: Pulse oximetry: on room air kb is 99 %. Interpretation: normal. Counseling: I had a detailed discussion with the patient and/or guardian regarding: the historical points, exam findings, and any diagnostic results supporting the discharge/admit diagnosis, lab results, radiology results, the need for outpatient follow up, a family practitioner, to return to the emergency department if symptoms worsen or persist or if there are any questions or concerns that arise at home. 13:57 ED course: oxygen sat 97% after walking from lobby to room. No resp distress. . kb 04/02 10:30 Order name: Blood Culture Adult (2) kb 04/02 10:30 Order name: BMP; Complete Time: 11:32 kb 04/02 10:30 Order name: C-Reactive Protein; Complete Time: 11:32 kb 04/02 10:30 Order name: CBC with Diff; Complete Time: 12:40 kb 04/02 10:30 Order name: D-Dimer; Complete Time: 11:32 kb 04/02 10:30 Order name: Ferritin; Complete Time: 11:32 kb 04/02 10:30 Order name: Lactate; Complete Time: 11:22 kb 04/02 10:30 Order name: LFT's; Complete Time: 11:32 kb 04/02 10:30 Order name: Lipase; Complete Time: 11:32 kb 04/02 10:30 Order name: Procalcitonin; Complete Time: 11:35 kb 04/02 10:30 Order name: PT-INR; Complete Time: 11:32 kb 04/02 10:30 Order name: Ptt, Activated; Complete Time: 11:32 kb 04/02 10:30 Order name: Troponin (emerg Dept Use Only); Complete Time: 11:32 kb 04/02 10:31 Order name: Blood Culture EDNY 04/02 10:30 Order name: CXR XRAY; Complete Time: 11:40 kb 04/02 10:30 Order name: EKG; Complete Time: 10:32 kb 04/02 10:30 Order name: Droplet/Contact Precautions; Complete Time: 11:24 kb 04/02 10:30 Order name: EKG - Nurse/Tech; Complete Time: 10:49 kb 04/02 10:30 Order name: IV Start; Complete Time: 11:24 kb 04/02 10:30 Order name: Labs collected and sent; Complete Time: 11:24 kb 04/02 10:30 Order name: O2 Per Protocol; Complete Time: 11:24 kb 04/02 10:30 Order name: O2 Sat Monitoring; Complete Time: 11:24 kb 04/02 11:23 Order name: CBC Smear Scan; Complete Time: 12:40 EDMS 04/02 11:33 Order name: CT Chest For PE Angio; Complete Time: 12:05 kb Administered Medications: No medications were administered Disposition: 17:55 Co-signature as Attending Physician, Mamadou Joyce MD. rn Disposition: 04/02/20 12:39 Discharged to Home. Impression: Coronavirus infection, unspecified. - Condition is Stable. - Discharge Instructions: Viral Respiratory Infection, [id number], COVID-19. - Prescriptions for Zofran 4 mg Oral Tablet - take 1 tablet by ORAL route every 6 hours As needed; 20 tablet. - Medication Reconciliation Form, Thank You Letter, Antibiotic Education, Prescription Opioid Use form. - Follow up: Emergency Department; When: As needed; Reason: Worsening of condition. Follow up: Jose Miguel Oropeza MD; When: 2 - 3 days; Reason: Recheck today's complaints, Continuance of care, Re-evaluation by your physician. Signatures: Dispatcher [employer] EDNY Clare Hart, TRAINING AND DEVELOPMENT MANAGER-C TRAINING AND DEVELOPMENT MANAGER-Ckb Jen Benson, ZHAO RN iw Mamadou Joyce MD MD rn Calderon, Audri, RN RN aa5 Corrections: (The following items were deleted from the chart) 12:56 12:39 04/02/2020 12:39 Discharged to Home. Impression: Coronavirus infection, iw unspecified. Condition is Stable. Forms are Medication Reconciliation Form, Thank You Letter, Antibiotic Education, Prescription Opioid Use. Follow up: Emergency Department; When: As needed; Reason: Worsening of condition. Follow up: Jose Miguel Oropeza; When: 2 - 3 days; Reason: Recheck today's complaints, Continuance of care, Re-evaluation by your physician. kb
[2020-04-02 14:05] VITALS: BP 98/58; TEMP 98.4; O2SAT 99
--- NOTE | 2020-04-03 05:38 | EKG ---
Test Date: 2020-04-02 Test Time: 10:43:13 Senior [employer] Trader: GULSHAN MEASUREMENT RESULTS: Intervals: Rate: 59 CA: 186 QRSD: 80 QT: 432 QTc: 427 [place]: P: 46 CA: 186 QRS: 2 T: 41 INTERPRETIVE STATEMENTS: Sinus bradycardia Cannot rule out Inferior infarct, age undetermined Abnormal ECG Compared to ECG 02/08/2020 14:11:30 Myocardial infarct finding now present Electronically Signed On 04-03-20 05:35:43 RECESSING MACHINE OPERATOR by Mauricio Guidry
== END 2020-04-02 12:56 | disposition home or self-care (01) ==
LOC: ER 09:06
DX: U07.1 COVID-19 (principal); K74.60 Unspecified cirrhosis of liver
CPT/HCPCS: 93005; 87040 ×2; 85025; 80048; 36415; 85610; 85379; 80076; 83605; 85730; 84484; 82728; 83690; 84145; 86140; 71275; 71045; 99284; Q9967

== ENCOUNTER → 2023-02-17 | Emergency (ER) | payer OTHER ==
[2023-02-17 16:37] LABS: SARS-CoV-2 Antigen Rapid Res Positive (Negative)
--- NOTE | 2023-02-17 18:00 | RAD REPORT ---
EXAM DESCRIPTION: RAD - Chest Pa And Lat (2 Views) - 02/17/2023 4:05 pm CLINICAL HISTORY: COUGH COMPARISON: Chest Single View dated 04/02/2020; Chest Single View dated 02/08/2020; Chest Single View d ated 04/28/2019; CHEST PA AND LAT 2 VIEW dated 12/27/2014 TECHNIQUE: PA and lateral views of the chest were obtained. FINDINGS: The lungs are clear. Heart size is normal and central vasculature is within normal limits. No pleural effusion or pneumothorax seen. No acute bony finding noted. IMPRESSION: No acute cardiopulmonary process.
--- NOTE | 2023-02-17 18:17 | ER ---
Nurse's Notes [facility] Name: Luis Carlos Lujan Jr Age: 62 yrs Sex: Male : 1960 Arrival Date: 02/17/2023 Time: 15:08 Bed 9 Private MD: Diagnosis: SARS-associated coronavirus as the cause of diseases classified elsewhere Presentation: 02/17 15:29 Chief complaint: Patient states: Cough, sore throat, subjective fever, some diarrhea ph and headache x 4 days. Coronavirus screen: Vaccine status: Patient reports receiving the 2nd dose of the covid vaccine. Ebola Screen: No symptoms or risks identified at this time. 15:29 Method Of Arrival: Ambulatory ph 18:20 Initial Sepsis Screen: Does the patient meet any 2 criteria? No. Patient's initial cm10 sepsis screen is negative. Does the patient have a suspected source of infection? No. Patient's initial sepsis screen is negative. Risk Assessment: Do you want to hurt yourself or someone else? Patient reports no desire to harm self or others. Onset of symptoms was February 17, 2023. 18:20 Acuity: HONORIO 4 cm10 Triage Assessment: 18:17 General: Appears in no apparent distress. comfortable, Behavior is calm, cooperative. cm10 Pain: Complains of pain in Throat. EENT: No deficits noted. Reports pain in Throat. Neuro: No deficits noted. Level of Consciousness is awake, alert, obeys commands, Oriented to person, place, time, situation. Cardiovascular: No deficits noted. Respiratory: No deficits noted. Airway is patent Respiratory effort is even, unlabored, Respiratory pattern is regular, symmetrical. GI: No deficits noted. No signs and/or symptoms were reported involving the gastrointestinal system. : No deficits noted. No signs and/or symptoms were reported regarding the genitourinary system. Derm: No deficits noted. No signs and/or symptoms reported regarding the dermatologic system. Skin is intact, Skin is pink, warm \T\ dry. Musculoskeletal: No deficits noted. Range of motion: intact in all extremities. 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 - Social history:: Smoking status: unknown. Screenin:19 [facility] Fall Risk Assessment (Adult) History of falling in the last 3 months, cm10 including since admission No falls in past 3 months (0 pts) Confusion or Disorientation No (0 pts) Intoxicated or Sedated No (0 pts) Impaired Gait No (0 pts) Mobility Assist Device Used No (0 pt) Altered Elimination No (0 pt) Score/Fall Risk Level 0 - 2 = Low Risk Oriented to surroundings, Maintained a safe environment, Hourly rounding (assess needs \T\ fall precautionary measures) done. Abuse screen: Denies threats or abuse. Denies injuries from another. Nutritional screening: No deficits noted. Tuberculosis screening: No symptoms or risk factors identified. Vital Signs: 15:29 BP 155 / 65; Pulse 58; Resp 17; Temp 97.9; Pulse Ox 99% on R/A; Weight 116.57 kg; ph Height 5 ft. 5 in. ; 15:29 Body Mass Index 42.77 (116.57 kg, 165.1 cm) ph ED Course: 15:11 Patient arrived in ED. im 15:16 Chaz Frias PA is PHCP. cp 15:16 Yahaira Cherry MD is Attending Physician. cp 16:06 XRAY Chest Pa And Lat (2 Views) In Process Unspecified. EDMS 18:19 Arm band placed on Patient placed in an exam room. cm10 18:19 Patient has correct armband on for positive identification. Provided Education on: ER cm10 process and procedures. . 18:19 No provider procedures requiring assistance completed. Patient did not have IV access cm10 during this emergency room visit. 18:20 Triage completed. cm10 Administered Medications: No medications were administered Medication: 18:19 VIS not applicable for this client. cm10 Outcome: 18:16 Discharge ordered by . cp 18:20 Discharged to home ambulatory, cm10 18:20 Condition: good 18:20 Discharge instructions given to patient, Instructed on discharge instructions, follow up and referral plans. medication usage, Demonstrated understanding of instructions, follow-up care, medications, Prescriptions given X 3, 18:28 Patient left the ED. cm10 Signatures: Dispatcher [employer] EDWV Shawna Cross RN RN Chaz Frias PA PA cp Mendoza, Itzel im Martinez, Clarissa, RN RN cm10
--- NOTE | 2023-02-17 18:17 | EDPHYS ---
Physician Documentation [facility] Name: Luis Carlos Lujan Jr Age: 62 yrs Sex: Male : 1960 Arrival Date: 02/17/2023 Time: 15:08 Bed 9 Private MD: ED Physician Yahaira Cherry HPI: 02/17 15:30 This 62 yrs old Male presents to ER via Ambulatory with complaints of Flu cp Symptoms. 15:30 The patient or guardian reports cough, that is intermittent, chest congestion. cp Associated signs and symptoms: Pertinent positives: diarrhea, sore throat, Pertinent negatives: chest pain, fever, vomiting. 15:30 Onset: The symptoms/episode began/occurred 4 day(s) ago. Severity of symptoms: in the cp emergency department the symptoms are unchanged despite home interventions. 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 - Social history:: Smoking status: unknown. ROS: 15:35 Constitutional: Positive for body aches, Negative for fever, poor PO intake, cp 15:35 Eyes: Negative for injury, pain, redness, and discharge, cp 15:35 ENT: Negative for drainage from ear(s), ear pain, sore throat, difficulty swallowing, difficulty handling secretions, 15:35 Cardiovascular: Negative for chest pain, edema, palpitations, 15:35 Respiratory: Positive for cough, "sounds productive", wheezing, 15:35 Abdomen/GI: Negative for vomiting, diarrhea, constipation, 15:35 Neuro: Negative for altered mental status, dizziness, headache, weakness, 15:35 All other systems are negative, Exam: 15:40 Constitutional: The patient appears in no acute distress, alert, awake, cp non-diaphoretic, non-toxic, well developed, well nourished, overweight 15:40 Head/Face: Normocephalic, atraumatic. cp 15:40 Eyes: Periorbital structures: appear normal, Conjunctiva: normal, no exudate, no injection, Sclera: no appreciated abnormality, Lids and lashes: appear normal, bilaterally, 15:40 ENT: External ear(s): are unremarkable, Ear canal(s): are normal, clear, TM's: bulging, is not appreciated, bilaterally, dullness, bilaterally, erythema, is not appreciated, bilaterally, Nose: is normal, Mouth: Lips: moist, Oral mucosa: moist, Posterior pharynx: Airway: no evidence of obstruction, patent, erythema, that is mild, exudate, is not appreciated, 15:40 Neck: ROM/movement: is normal, is supple, without pain, no range of motions limitations, no meningismus, no nuchal rigidity, 15:40 Chest/axilla: Inspection: normal, 15:40 Cardiovascular: Rate: bradycardic, Rhythm: regular, Edema: is not appreciated, JVD: is not appreciated, 15:40 Respiratory: the patient does not display signs of respiratory distress, Respirations: labored breathing, is not present, intercostal retractions, are absent, Breath sounds: decreased breath sounds, are not appreciated, stridor, is not appreciated, + upper airway congestion. 15:40 Abdomen/GI: Inspection: abdomen appears normal, Palpation: abdomen is soft and non-tender, in all quadrants, 15:40 Neuro: Orientation: to person, place \\T\\ time. Mentation: is normal, Motor: moves all fours, strength is normal, Sensation: is normal, Vital Signs: 15:29 BP 155 / 65; Pulse 58; Resp 17; Temp 97.9; Pulse Ox 99% on R/A; Weight 116.57 kg; ph Height 5 ft. 5 in. ; 15:29 Body Mass Index 42.77 (116.57 kg, 165.1 cm) ph MDM: 16:00 Differential diagnosis: bronchitis, flu, URI, pneumonia. cp 16:03 Patient medically screened. cp 18:15 Data reviewed: vital signs, nurses notes, lab test result(s), radiologic studies, plain cp films. 18:15 Care significantly affected by the following chronic conditions: Liver Disease. cp Counseling: I had a detailed discussion with the patient and/or guardian regarding the historical points, exam findings, and any diagnostic results supporting the discharge/admit diagnosis, lab results, radiology results, to return to the emergency department if symptoms worsen or persist or if there are any questions or concerns that arise at home. 02/17 15:23 Order name: Strep cp 02/17 17:09 Interpretation: Reviewed. 02/17 15:26 Order name: SARS RAPID; Complete Time: 16:57 ph 02/17 16:57 Interpretation: Reviewed. cp 02/17 15:26 Order name: Flu; Complete Time: 16:57 ph 02/17 16:57 Interpretation: Reviewed. cp 02/17 16:38 Order name: Throat Culture [facility] 02/17 15:23 Order name: XRAY Chest Pa And Lat (2 Views); Complete Time: 18:12 cp Administered Medications: No medications were administered Disposition Summary: 02/17/23 18:16 Discharge Ordered Notes: Location: Home cp Problem: new cp Symptoms: have improved cp Condition: Stable cp Diagnosis - SARS-associated coronavirus as the cause of diseases classified elsewhere cp Followup: cp - With: Private Physician - When: 2 - 3 days - Reason: Worsening of condition Discharge Instructions: - Discharge Summary Sheet cp - Aspirin and Your Heart cp - COVID-19 cp - How to Protect Yourself and Others - [facility] (04/03/2021) cp - 10 Things You Can Do to Manage Your COVID-19 Symptoms at Home - [facility] (08/22/2020) cp - COVID-19: Quarantine and Isolation - [facility] (05/06/2021) cp - COVID-19: What to Do If You Are Sick - [facility] (04/28/2021) cp Forms: - Medication Reconciliation Form cp - Thank You Letter cp - Antibiotic Education cp - Prescription Opioid Use cp - Patient Portal Instructions cp - Leadership Thank You Letter cp Prescriptions: - Bromfed DM 2-30-10 mg/5 mL Oral syrup - administer 10 milliliter ORAL route every 6 hours as needed for cough; 240 cp milliliter; Refills: 0, Product Selection Permitted - Paxlovid 300 mg (150 mg x 2)-100 mg Oral Tablet, Dose Pack - take 1 dose pack ORAL route as directed on dose pack for 5 days take TWO 150 mg cp tablets of nirmatrelvir with ONE 100 mg tablet of ritonavir twice daily for 5 days; 30 tablet; Refills: 0, Product Selection Permitted - albuterol sulfate 90 mcg/actuation Inhalation HFA Aerosol Inhaler - inhale 1 puff INHALATION route every 4 to 6 hours As needed; 1 unit; Refills: cp 0, Product Selection Permitted Signatures: Dispatcher [employer] [facility] Chaz Frias PA PA cp Martinez, Clarissa RN RN cm10 Corrections: (The following items were deleted from the chart) 02/18 17:15 17:14 Care significantly affected by the following chronic conditions: Liver Disease, [facility] 17:15 17:14 Counseling: I had a detailed discussion with the patient and/or guardian cp regarding the historical points, exam findings, and any diagnostic results supporting the discharge/admit diagnosis, lab results, radiology results, to return to the emergency department if symptoms worsen or persist or if there are any questions or concerns that arise at home, cp
[2023-02-17 22:16] VITALS: BP 155/65; TEMP 97.9; O2SAT 99
== END ==
LOC: ER 15:08
DX: U07.1 COVID-19 (principal)
CPT/HCPCS: 36415; 71046; 87070; 87081; 87804; 87811; 99283